=== PATIENT | male | born 1990 | race Caucasian/White ===

== ENCOUNTER 2024-09-05 01:59 | Emergency (ER) | payer SELFPAY ==
[2024-09-05 02:10] VITALS: BP 148/88; PULSE 86; TEMP 36.6; O2SAT 100; BMI 27.0
--- NOTE | 2024-09-05 03:00 | ED_ITS ---
HPI - Eye Problem General Chief complaint: Eye Problems Stated complaint: foreign eyes Time Seen by Provider: 09/05/24 02:56 Source: patient Mode of arrival: walk-in Limitations: no limitations History of Present Illness HPI Narrative: presents with concern of FB left eye. Believes it may be piece of wood. present now for a couple of days. not successful in trying to rinse it out. came to ER due to increasing pain Related Data Home Medications ?Medication ?Instructions ?Recorded ?Confirmed No Known Home Medications 09/05/24 09/05/24 Allergies Allergy/AdvReac Type Severity Reaction Status Date / Time adhesive tape Allergy Mild rash Verified 09/05/24 02:10 Review of Systems 2 ROS0 Status of ROS 10 or more systems reviewed and unremark able except as noted in history and below PFSH PFSH Social History Little interest or pleasure in doing things: not at all Feeling down, depressed, or hopeless: not at all Exam Constitutional Vital Signs, click to edit/add: Last Vital Signs Temp 97.9 F 09/05/24 02:10 Pulse 86 09/05/24 02:10 Resp 18 09/05/24 02:10 BP 148/88 H 09/05/24 02:10 Pulse Ox 100 09/05/24 02:10 O2 Del Method Room Air 09/05/24 02:10 Common normals: average body habitus, oriented x3, no limitations and healthy appearing General appearance: in distress (mild distress related to discomfort of left eye) Eye Other: left eye infected. mild swelling left upper eyelid. FB appreciated Eye images: 2 1. large FB Respiratory Common normals: normal respiratory effort, no retractions, no use of accessory muscles and clear to auscultation bilaterally Cardio Common normals: regular rate and regular rhythm Extremity Common normals: normal to inspection and full ROM Neuro Common normals: oriented x3, CN's II-XII intact bilaterally, moves all extremities and no focal motor deficits Psych Appearance: grossly normal Course Vital Signs Vital signs: Vital Signs Temperature 97.9 F 09/05/24 02:10 Pulse Rate 86 09/05/24 02:10 Respiratory Rate 18 09/05/24 02:10 Blood Pressure 148/88 H 09/05/24 02:10 Pulse Oximetry 100 09/05/24 02:10 Oxygen Delivery Method Room Air 09/05/24 02:10 Temperature 97.9 F 09/05/24 02:10 Pulse Rate 86 09/05/24 02:10 Respiratory Rate 18 09/05/24 02:10 Blood Pressure 148/88 H 09/05/24 02:10 Pulse Oximetry 100 09/05/24 02:10 Oxygen Delivery Method Room Air 09/05/24 02:10 MDM - Eye Problem MDM Narrative Medical decision making narrative: presents with FB left eye for a couple of days. large FB found embedded in the eye. used slit lamp to remove most of the FB including the ring. Patient tolerated well. Discharged home with tobramycin drops and advised to have the eye rechecked within next 12-24 hours Discharge Plan Discharge Chief Complaint: Eye Problems Clinical Impression: Foreign body in eyeball, left Patient Disposition: Home, Self-Care Prescriptions / Home Meds: No Action No Known Home Medications Print Language: Syriac Instructions: Eye Foreign Body (ED) Additional Instructions: instill 2 drops every couple of hours. have eye rechecked within next 12-24 hours. return sooner if increasing pain Referrals: Physician,Non-Staff, MD [Primary Care Provider] - 1 week Procedures ED Procedure Instructions Procedures Procedures: FB left eye. tetracaine used as local anesthetic . 23 disha needle used to remove 99% FB including ring. Patient tolerated well
[2024-09-05] MEDS: FLUORESCEIN SODIUM 1 MG STRIP OP (03:12)
[2024-09-05] MEDS: TETRACAINE HCL 0.5% OP SOL 80 DROP/4 ML BOTTLE OP (03:12)
[2024-09-05 04:44] VITALS: BP 119/81; PULSE 68; TEMP 36.8; O2SAT 99
[2024-09-05] MEDS: HYDROCODONE/ACET 5-325 MG TABLET 4 TAB PO (04:46)
[2024-09-05] MEDS: TOBRAMYCIN 0.3% OP SOL 100 DROP/5 ML BOTTLE OP (04:47)
== END 2024-09-05 04:55 | disposition home or self-care (01) ==
PROVIDERS: Emergency Provider Internal Medicine
DX: T15.82XA Foreign body in other and multiple parts of external eye, left eye, initial encounter (principal); W44.9XXA Unspecified foreign body entering into or through a natural orifice, initial encounter
CPT/HCPCS: 65205; 99283